=== PATIENT | female | born 1965 | race Caucasian/White ===

== ENCOUNTER 2020-12-01 19:08 | Emergency (ER) | payer OTHER ==
[~2020-12-01 19:08] MED LIST: ASPIRIN CHEWABL81 MG PO; CLEOCIN HCL300 MG PO; IBUPROFEN400 MG PO; NITROSTAT0.4 MG SL
== END 2020-12-01 21:35 | disposition left against medical advice (07) ==
LOC: ER1 19:08
DX: Z53.21 Procedure and treatment not carried out due to patient leaving prior to being seen by health care provider (principal)

== ENCOUNTER → 2021-01-17 | Outpatient (CLI) | payer OTHER | LOC: KOH-I 11:25 | DX: M25.511 Pain in right shoulder (principal) | CPT/HCPCS: 73030 ==

== ENCOUNTER → 2021-08-23 | Outpatient (CLI) | payer OTHER | LOC: KOH-I 16:10 | DX: M54.2 Cervicalgia (principal); M25.512 Pain in left shoulder; M75.92 Shoulder lesion, unspecified, left shoulder | CPT/HCPCS: 72040; 73030 ==

== ENCOUNTER 2021-08-25 23:09 | Emergency (ER) | payer OTHER ==
[2021-08-25 23:49] LABS: HEMOGLOBIN 14.2 gm/dl (12.3-15.3); RED BLOOD COUNT 4.59 M/UL (4.00-5.10); WHITE BLOOD COUNT 9.6 K/UL (4.5-11.0)
[2021-08-26 00:01] LABS: BUN/CREATININE RATIO 18 (0-10)
== END 2021-08-26 04:00 | disposition short-term general hospital (02) ==
LOC: ER1 23:09
PROVIDERS: Student in an Organized Health Care Education/Training Program
DX: G45.9 Transient cerebral ischemic attack, unspecified (principal); Z20.822 Contact with and (suspected) exposure to COVID-19
CPT/HCPCS: 70450; 70496; 70498; 71045; 80048; 82550; 82553; 84484; 85025; 93005; 99285; Q9967; U0002